=== PATIENT | female | born 1955 | race Caucasian/White ===

== ENCOUNTER 2020-07-04 16:01 | Observation (INO) | payer OTHER ==
[~2020-07-04] VITALS: Ht 165.1 cm; Wt 59.0 kg
[~2020-07-04 16:01] MED LIST: ABILIFY15 MG PO; ADVAIR 250-501 EACH INH; ADVIL200 MG PO; ALBUTEROL1.25 MG/3 INH; ALTACE2.5 MG PO; AMBIEN5 MG PO; ANORO ELLIPTA1 EACH INH; CARAFATE 1 GM TA1 GM PO; CELEBREX 200MG200 MG PO; CELEBREX200 MG PO; CELEXA40 MG PO; CIPRO500 MG PO; CLARITIN 10MG T10 MG PO; COLACE 100MG C100 MG PO; COMBIVENT RESPIM4 GM INH; COMBIVENT0.074 GM/I INH; DEXILANT30 MG PO; DIVALPROEX SOD500 MG PO; DOXYCYCLINE HY100 MG PO; EFFEXOR XR75 MG PO; ELAVIL 25 MG TA25 MG PO; FAMOTIDINE20 MG PO; FLAGYL500 MG PO; FLONASE 0.05% N16 GM; FOSAMAX70 MG PO; GABAPENTIN600 MG PO; HYDROCHLOROTHIA25 MG PO; HYDROXYZINE HCL25 MG PO; IMITREX100 MG PO; INDERAL TAB 4040 MG PO; K-DUR TAB 20 M20 MEQ PO; KENALOG CREAM 015 GM TOP; KLONOPIN TAB 00.5 MG PO; KLOR-CON 1010 MEQ PO; LASIX20 MG PO; LEVAQUIN500 MG PO; LEXAPRO20 MG PO; LIDODERM PATCH 51 EA TP; LISINOPRIL2.5 MG PO; LORTAB 7.5-3251 EACH PO; LOVENOX30 MG/0.3 SQ; MACROBID 100 M100 MG PO; MELATONIN3 MG PO; NEXIUM20 MG PO; NORCO 10-325 T1 EACH PO; OMEPRAZOLE20 M1 PO; OMEPRAZOLE20 MG PO; PEPCID20 MG PO; PHENERGAN 12.12.5 M1 PO; PREDNISONE 20 M20 MG PO; PROTONIX40 MG PO; SEROQUEL100 MG PO; SINEQUAN CAP 1010 MG PO; SPIRIVA HANDIH18 MCG INH; SULFAMETHOXAZO1 EACH PO; TRAZODONE HCL100 MG PO; VENTOLIN HFA 66.7 GM INH; VISTARIL25 MG PO; VITAMIN B-1 5050 MG PO; VITAMIN D250000 UNIT PO; VITAMIN D31000 UNI1 PO; VITAMIN D31000 UNIT PO; Voltaren Gel 1 % TOP; ZOFRAN4 MG PO
[2020-07-05 21:59] LABS: HEMOGLOBIN 11.7 gm/dl (12.3-15.3); RED BLOOD COUNT 4.41 M/UL (4.00-5.10); WHITE BLOOD COUNT 6.4 K/UL (4.5-11.0)
[2020-07-05 22:16] LABS: BUN/CREATININE RATIO 22 (0-10)
[2020-07-08] MEDS ORDERED: LYRICA50 MG PO (12:20)
[2020-07-08] MEDS ORDERED: ELAVIL 50 MG TA50 MG PO (12:21)
[2020-07-08] MEDS ORDERED: ATIVAN2 MG PO (12:22)
[2020-07-08] MEDS ORDERED: HYDROXYZINE HCL25 MG PO (15:08)
[2020-07-08] MEDS ORDERED: INDERAL TAB 4040 MG PO (15:09)
[2020-07-08] MEDS ORDERED: LISINOPRIL2.5 MG PO (15:10)
[2020-07-08] MEDS ORDERED: ELAVIL 25 MG TA25 MG PO (15:10)
[2020-07-11 03:27] LABS: HEMOGLOBIN 10.8 gm/dl (12.3-15.3); RED BLOOD COUNT 4.04 M/UL (4.00-5.10); WHITE BLOOD COUNT 4.6 K/UL (4.5-11.0)
[2020-07-11 03:48] LABS: BUN/CREATININE RATIO 21 (0-10)
--- NOTE | 2020-07-11 15:05 | NUR ---
07/11/20 1400 [facility] COMPLETED THEY RECOMMEND OP THERAPY, NAKIA IN CASE MANAGEMENT DISCUSSED WITH DR. LUNA [id number] [facility] NOTIFIED AND REQUESTED TO SEE WHAT DR LUNA RECOMMENDS SITTER REMAINS AT BEDSIDE
[2020-07-12 05:45] LABS: HEMOGLOBIN 10.5 gm/dl (12.3-15.3); RED BLOOD COUNT 3.96 M/UL (4.00-5.10); WHITE BLOOD COUNT 5.2 K/UL (4.5-11.0)
[2020-07-12 06:05] LABS: BUN/CREATININE RATIO 13 (0-10)
[2020-07-14 06:18] LABS: HEMOGLOBIN 10.9 gm/dl (12.3-15.3); RED BLOOD COUNT 4.09 M/UL (4.00-5.10); WHITE BLOOD COUNT 5.3 K/UL (4.5-11.0)
[2020-07-14 06:31] LABS: BUN/CREATININE RATIO 12 (0-10)
[2020-07-15 03:43] LABS: BUN/CREATININE RATIO 12 (0-10)
[2020-07-16 05:36] LABS: RED BLOOD COUNT 4.13 M/UL (4.00-5.10)
[2020-07-16 05:56] LABS: BUN/CREATININE RATIO 17 (0-10)
[2020-07-16] MEDS ORDERED: IBUPROFEN600 MG PO (12:14)
[2020-07-16] MEDS ORDERED: TRAMADOL HCL50 MG PO ×2 (12:14→12:32)
[2020-07-16] MEDS ORDERED: ATIVAN2 MG PO (16:10)
== END 2020-07-16 18:44 | disposition home or self-care (01) ==
LOC: ER1 16:01 → MED SURG 4 07-07 16:00
PROVIDERS: Emergency Medicine; Family Medicine; Physician Assistant; ADMIT Internal Medicine
DX: R45.851 Suicidal ideations (principal); G83.24 Monoplegia of upper limb affecting left nondominant side; M47.812 Spondylosis without myelopathy or radiculopathy, cervical region; G89.4 Chronic pain syndrome; F39 Unspecified mood [affective] disorder; F17.200 Nicotine dependence, unspecified, uncomplicated; I10 Essential (primary) hypertension; J44.9 Chronic obstructive pulmonary disease, unspecified; F41.8 Other specified anxiety disorders; Z88.0 Allergy status to penicillin; Z88.5 Allergy status to narcotic agent; Z20.828 Contact with and (suspected) exposure to other viral communicable diseases
CPT/HCPCS: 36415; 70551; 72141; 73218; 80048; 80053; 85025; 94640; 94664; 94760; 99285; G0378; U0002

== ENCOUNTER 2020-07-18 08:03 | Observation (INO) | payer OTHER ==
[~2020-07-18] VITALS: Ht 167.6 cm; Wt 72.6 kg
[~2020-07-18 08:03] MED LIST changes: +ATIVAN2 MG PO; +ELAVIL 50 MG TA50 MG PO; +IBUPROFEN600 MG PO; +LYRICA50 MG PO; +TRAMADOL HCL50 MG PO
[2020-07-18 08:39] LABS: HEMOGLOBIN 12.2 gm/dl (12.3-15.3); WHITE BLOOD COUNT 6.1 K/UL (4.5-11.0)
[2020-07-18 09:00] LABS: RED BLOOD COUNT 4.67 M/UL (4.00-5.10)
[2020-07-18 09:02] LABS: BUN/CREATININE RATIO 12 (0-10)
[2020-07-18] MEDS ORDERED: HYDROXYZINE HCL25 MG PO (11:11)
[2020-07-18] MEDS ORDERED: FAMOTIDINE20 MG PO (11:13)
[2020-07-18] MEDS ORDERED: PROAIR HFA8.5 GM INH (11:20)
[2020-07-18] MEDS ORDERED: DIVALPROEX SOD500 MG PO (15:09)
[2020-07-19 06:26] LABS: HEMOGLOBIN 11.8 gm/dl (12.3-15.3); RED BLOOD COUNT 4.45 M/UL (4.00-5.10); WHITE BLOOD COUNT 7.5 K/UL (4.5-11.0)
[2020-07-19 07:03] LABS: BUN/CREATININE RATIO 22 (0-10)
--- NOTE | 2020-07-24 11:45 | NUR ---
SPOKEN WITH DR. VIVAR R/T PATIENT REFUSING DEPAKOTE AND PATIENT NO IV ACCESS. HE ACKNOWLEDGED
[2020-07-25 06:42] LABS: HEMOGLOBIN 11.2 gm/dl (12.3-15.3); RED BLOOD COUNT 4.23 M/UL (4.00-5.10); WHITE BLOOD COUNT 5.8 K/UL (4.5-11.0)
[2020-07-25 07:03] LABS: BUN/CREATININE RATIO 26 (0-10)
[2020-07-26] MEDS ORDERED: LISINOPRIL2.5 MG PO (12:20)
[2020-07-26] MEDS ORDERED: DIVALPROEX SOD500 MG PO (12:20)
[2020-07-26] MEDS ORDERED: INDERAL TAB 4040 MG PO (12:20)
[2020-07-26] MEDS ORDERED: CELEXA 20MG TAB20 MG PO (12:20)
[2020-07-26] MEDS ORDERED: IBUPROFEN400 MG PO (12:20)
[2020-07-26] MEDS ORDERED: FAMOTIDINE20 MG PO (12:20)
[2020-07-26] MEDS ORDERED: AMITRIPTYLINE H25 MG PO (12:20)
== END 2020-07-26 15:15 | disposition home or self-care (01) ==
LOC: ER1 08:03 → M/S 09:50 → ZEROF 09:50 → M/S 20:00
PROVIDERS: Emergency Medicine; Internal Medicine; Physician Assistant Medical; ADMIT Internal Medicine
DX: J44.1 Chronic obstructive pulmonary disease with (acute) exacerbation (principal); G54.0 Brachial plexus disorders; F17.210 Nicotine dependence, cigarettes, uncomplicated; F39 Unspecified mood [affective] disorder; I10 Essential (primary) hypertension; K21.9 Gastro-esophageal reflux disease without esophagitis; F41.8 Other specified anxiety disorders; Z88.0 Allergy status to penicillin; Z88.5 Allergy status to narcotic agent; Z88.8 Allergy status to other drugs, medicaments and biological substances; Z20.822 Contact with and (suspected) exposure to COVID-19
CPT/HCPCS: 36415; 36600; 71045; 80048; 80053; 82550; 82553; 82803; 83735; 83874; 84484; 85025; 85027; 93005; 94640; 94760; 96372; 96374; 96375; 99285; G0378; J2060; J2930; U0002

== ENCOUNTER 2020-08-02 20:12 | Emergency (ER) | payer OTHER ==
[~2020-08-02 20:12] MED LIST changes: +AMITRIPTYLINE H25 MG PO; +CELEXA 20MG TAB20 MG PO; +IBUPROFEN400 MG PO; +PROAIR HFA8.5 GM INH
[2020-08-02 21:41] LABS: HEMOGLOBIN 12.3 gm/dl (12.3-15.3); RED BLOOD COUNT 4.66 M/UL (4.00-5.10); WHITE BLOOD COUNT 7.4 K/UL (4.5-11.0)
[2020-08-02 22:15] LABS: BUN/CREATININE RATIO 31 (0-10)
[2020-08-03] MEDS ORDERED: VISTARIL 50 MG50 MG PO (00:01)
[2020-08-03] MEDS ORDERED: IBUPROFEN600 MG PO (00:01)
[2020-08-03] MEDS ORDERED: PREGABALIN50 MG PO (00:06)
[2020-08-03 06:41] LABS: HEMOGLOBIN 11.6 gm/dl (12.3-15.3); RED BLOOD COUNT 4.51 M/UL (4.00-5.10)
[2020-08-03 07:22] LABS: BUN/CREATININE RATIO 33 (0-10)
== END 2020-08-03 09:07 | disposition left against medical advice (07) ==
LOC: ER1 20:12 → CDU 08-03 00:42 → ER1 08-03 00:42
PROVIDERS: Internal Medicine; Physician Assistant
DX: R06.02 Shortness of breath (principal); R79.89 Other specified abnormal findings of blood chemistry; I10 Essential (primary) hypertension; J44.9 Chronic obstructive pulmonary disease, unspecified; F17.210 Nicotine dependence, cigarettes, uncomplicated; Z88.0 Allergy status to penicillin; Z88.5 Allergy status to narcotic agent; Z88.8 Allergy status to other drugs, medicaments and biological substances; Z20.822 Contact with and (suspected) exposure to COVID-19
CPT/HCPCS: 36600; 71045; 80053; 80307; 81001; 82550; 82553; 82803; 83605; 83735; 83874; 83880; 84484; 85025; 85610; 85730; 87040; 87086; 90471; 93005; 99285; G0480; U0002

== ENCOUNTER 2020-08-12 14:25 | Emergency (ER) | payer OTHER ==
[~2020-08-12 14:25] MED LIST changes: +PREGABALIN50 MG PO; +VISTARIL 50 MG50 MG PO
[2020-08-12 16:18] LABS: HEMOGLOBIN 11.6 gm/dl (12.3-15.3); RED BLOOD COUNT 4.36 M/UL (4.00-5.10); WHITE BLOOD COUNT 7.6 K/UL (4.5-11.0)
[2020-08-12 16:39] LABS: BUN/CREATININE RATIO 46 (0-10)
[2020-08-12] MEDS ORDERED: ZOFRAN ODT 4 MG4 MG PO (19:57)
== END 2020-08-12 20:22 | disposition home or self-care (01) ==
LOC: ER1 14:25
PROVIDERS: Family Medicine
DX: R11.2 Nausea with vomiting, unspecified (principal); F41.9 Anxiety disorder, unspecified; J44.9 Chronic obstructive pulmonary disease, unspecified; I10 Essential (primary) hypertension; F17.200 Nicotine dependence, unspecified, uncomplicated; Z88.0 Allergy status to penicillin; Z79.899 Other long term (current) drug therapy
CPT/HCPCS: 36600; 71045; 80053; 82550; 82553; 82803; 83605; 83874; 84484; 85025; 93005; 96374; 99284; J2405

== ENCOUNTER 2020-08-14 11:09 | Observation (INO) | payer OTHER ==
[~2020-08-14] VITALS: Ht 165.1 cm; Wt 59.0 kg
[~2020-08-14 11:09] MED LIST changes: +ZOFRAN ODT 4 MG4 MG PO
[2020-08-14 11:59] LABS: HEMOGLOBIN 12.3 gm/dl (12.3-15.3); RED BLOOD COUNT 4.61 M/UL (4.00-5.10); WHITE BLOOD COUNT 8.4 K/UL (4.5-11.0)
[2020-08-14 12:38] LABS: BUN/CREATININE RATIO 32 (0-10)
[2020-08-14] MEDS ORDERED: AMITRIPTYLINE H25 MG PO (15:45)
[2020-08-14] MEDS ORDERED: TRAMADOL HCL50 MG PO (17:33)
[2020-08-15 07:31] LABS: BUN/CREATININE RATIO 21 (0-10)
== END 2020-08-16 18:34 ==
LOC: ER1 11:09 → CDU 14:00 → MED SURG 4 08-15 16:47
PROVIDERS: Emergency Medicine; Physician Assistant; ADMIT Internal Medicine
DX: F39 Unspecified mood [affective] disorder (principal); F41.9 Anxiety disorder, unspecified; F32.9 Major depressive disorder, single episode, unspecified; F11.20 Opioid dependence, uncomplicated; E87.1 Hypo-osmolality and hyponatremia; E87.6 Hypokalemia; G83.24 Monoplegia of upper limb affecting left nondominant side; J44.9 Chronic obstructive pulmonary disease, unspecified; I10 Essential (primary) hypertension; G89.29 Other chronic pain; M54.9 Dorsalgia, unspecified; L89.159 Pressure ulcer of sacral region, unspecified stage; Z20.822 Contact with and (suspected) exposure to COVID-19; Z87.891 Personal history of nicotine dependence; Z80.1 Family history of malignant neoplasm of trachea, bronchus and lung; Z88.0 Allergy status to penicillin; Z88.5 Allergy status to narcotic agent; Z88.8 Allergy status to other drugs, medicaments and biological substances; Z79.899 Other long term (current) drug therapy
CPT/HCPCS: 36415; 71045; 80048; 80053; 81001; 82550; 82553; 83605; 83690; 83735; 83874; 84484; 85025; 93005; 96374; 96375; 99285; G0378; J1650; J2060; J2405; U0002